=== PATIENT | male | born 1965 | race Caucasian/White ===

== ENCOUNTER → 2017-05-11 | Outpatient (CLI) | payer MEDICARE, OTHER | END | disposition home or self-care (01) | LOC: YCFC.O 11:31 | PROVIDERS: ATTEND Anesthesiology Pain Medicine | DX: Z79.891 Long term (current) use of opiate analgesic (principal) ==

== ENCOUNTER 2017-06-01 05:44 | Day surgery (SDC) | payer MEDICARE ==
[2017-06-01] MEDS ORDERED: SODIUM BICARBONATE VIAL 50 MEQ/50 ML VIAL ONE (11:34)
[2017-06-01] MEDS ORDERED: SODIUM CHLORIDE 0.9% 10 ML VIAL ONE (11:35)
[2017-06-01] MEDS ORDERED: BUPIVACAINE 0.25% INJ 30 ML VIAL INJ ONE (11:35)
[2017-06-01] MEDS ORDERED: LIDOCAINE 1% MPF 5 ML VIAL ONE (11:35)
[2017-06-01] MEDS ORDERED: methylPREDNISolone ACETATE 80 MG/ML VIAL ONE (11:35)
[2017-06-01 12:28] VITALS: O2SAT 100
[2017-06-01 13:48] VITALS: BP 161/90; TEMP 96.8
== END 2017-06-01 13:30 | disposition home or self-care (01) ==
LOC: AMB 05:44
PROVIDERS: ATTEND Anesthesiology Pain Medicine
DX: M47.816 Spondylosis without myelopathy or radiculopathy, lumbar region (principal); M51.16 Intervertebral disc disorders with radiculopathy, lumbar region; M54.5 Low back pain; J45.909 Unspecified asthma, uncomplicated; I10 Essential (primary) hypertension; E11.9 Type 2 diabetes mellitus without complications
CPT/HCPCS: 64493; 64494; 76000; J1030

== ENCOUNTER → 2017-08-03 | Outpatient (CLI) | payer MEDICARE | END | disposition home or self-care (01) | LOC: YCFC.O 07:14 | PROVIDERS: ATTEND Nurse Practitioner Family | DX: I10 Essential (primary) hypertension (principal); Z12.5 Encounter for screening for malignant neoplasm of prostate; R73.09 Other abnormal glucose; Z00.00 Encounter for general adult medical examination without abnormal findings | CPT/HCPCS: 36415; 80053; 80061; 81001; 83036; 85025; G0103 ==